=== PATIENT | male | born 1960 | race Caucasian/White ===

== ENCOUNTER → 2016-06-28 | Outpatient (CLI) | payer OTHER ==
[~2016-06-28] MED LIST: AMOXICILLIN PO; LISINOPRIL10 MG PO; NIFEREX-150150 MG PO; NO MEDICATIONS; NORCO 5/325 TAB1 TAB PO; PERCOCET 10/3251 TAB PO; PERCOCET5/325 PO; ZOFRAN PO
--- NOTE | ~2016-06-28 | CT2 ---
[facility] A Service of [facility] RADIOLOGY TEXT RESULTS PATIENT: ALEKSANDAR VALERA [facility] : 62 UNIT #: [id number] AGE: [address]: Charlene Rick MD SEX: M ORDER DR: [id number] [facility] [address] [place], [place] [address] [id number] O MR#: [id number] Acc #: [id number] NAME: ALEKSANDAR VALERA. : 1960 SEX: M STUDY DATE/TIME: 06/28/2016 8:02 [facility] ROOM: STUDY DESCRIPTION: CT Abd and Pelv W Cont Attending Physician: Charlene Rick M.D. Referring Physician: Charlene Rick M.D. Ordering Physician: Charlene Rick M.D. Primary Care Physician: Jose Barajas M.D. MEDICAL IMAGING REPORT This report is preliminary unless electronic signature is present EXAM CT abdomen and pelvis with contrast HISTORY 56-year-old male; history of colon cancer. Had chemotherapy 2007 and 2015; prior colon resection. COMPARISON CT abdomen and pelvis 03/22/2016 TECHNIQUE Axial images performed through the abdomen and pelvis following IV contrast. Multiplanar reconstructed images reviewed at a workstation. This CT exam was performed with one or more of the following radiation dose reduction techniques: automatic exposure control, adjustment of mA and/or kV according to patient size, and iterative reconstruction. FINDINGS ABDOMEN: The examination demonstrates enhancing parenchymal opacity in the left lung base. This is felt to represent atelectatic lung. Please see separate chest CT report for details. Again, this represents progressive atelectasis when compared to the patient's study from March 2016. Further evaluation with bronchoscopy may be warranted, though again, a discrete mass lesion is not seen. Liver, spleen and gallbladder appear normal. Pancreas, kidneys and adrenal glands unremarkable. Retroperitoneum unremarkable. Stomach and small bowel appear normal. Scattered diverticular changes. Rectosigmoid anastomoses appears normal. PELVIS: Bladder and prostate appear normal. Osseous structures unremarkable. There is a defect in the lower anterior abdominal wall that probably represents an incisional hernia. This contains omental fat with STS. [facility] A Service of [facility] RADIOLOGY TEXT RESULTS PATIENT: ALEKSANDAR VALERA LOCATION: [facility] : 62 UNIT #: [id number] AGE: [address]: Charlene Rick MD SEX: M ORDER DR: some surrounding scarring and fibrosis. This measures about 7 cm in greatest cephalocaudal dimension and about 3.6 cm in transverse dimension. A small amount of bowel extends into the defect. There are a few small inguinal lymph nodes. IMPRESSION 1. No findings to suggest metastatic disease within the abdomen and pelvis. 2. Postsurgical changes from apparent resection with a normal-appearing rectosigmoid anastomoses. Postsurgical changes noted in the anterior abdominal wall with a ventral wall defect, as detailed above. 3. Colonic diverticular changes, but no evidence of diverticulitis. 4. Progressive left lower lobe atelectasis. Please see chest CT report for details and recommendations. Dictated by... Frederick Caro M.D. THIS IS AN ELECTRONICALLY VERIFIED REPORT Frederick Caro M.D. at 06/29/2016 9:37 AM Rosario TD: 06/28/2016 16:15 JOB #: [id number] MEDICAL IMAGING REPORT Page 1 of 1 COPY
--- NOTE | ~2016-06-28 | CT55 ---
[facility] A Service of [facility] & [facility] RADIOLOGY TEXT RESULTS PATIENT: ALEKSANDAR VALERA LOCATION: [facility] : 62 UNIT #: [id number] AGE: [address]: Charlene Rick MD SEX: M ORDER DR: [id number] [facility] [address] [place], [place] [address] [id number] O MR#: [id number] Acc #: [id number] NAME: ALEKSANDAR VALERA. : 1960 SEX: M STUDY DATE/TIME: 06/28/2016 8:02 UNIT: [facility] ROOM: STUDY DESCRIPTION: CT Chest W Con Attending Physician: Charlene Rick M.D. Referring Physician: Charlene Rick M.D. Ordering Physician: Charlene Rick M.D. Primary Care Physician: Jose Barajas M.D. MEDICAL IMAGING REPORT This report is preliminary unless electronic signature is present EXAM CT chest with contrast. HISTORY 56-year-old male diagnosed with colon cancer 2007 and 2015. Prior colon resection. Patient presents for surveillance of metastatic disease. COMPARISON CT chest 03/22/2016. TECHNIQUE NOTE: This CT exam was performed with one or more of the following radiation dose reduction techniques: automatic exposure control, adjustment of mA and/or kV according to patient size, and iterative reconstruction. FINDINGS Axial images performed through the chest following IV contrast. Multiplanar reconstructed images reviewed at a workstation. Examination demonstrates increasing left lower lobe volume loss with increasing parenchymal consolidation or atelectasis in the posterior medial aspect of the left lower lobe. This is felt to represent atelectatic lung though underlying mass lesion not entirely excluded. Given the progressive atelectasis further evaluation with bronchoscopy may be warranted. The parenchymal opacity measures about 4.2 x 6.3 cm in greatest transverse dimensions, and about 5.5 cm in greatest cephalocaudal dimension. This is in the posterior medial aspect the right lower lobe and there is a small left pleural effusion which represents a new finding from March. There is continued parenchymal opacity in the posterior aspect of the lingular segment inferiorly with a tree in bud appearance, could represent some focal pneumonitis, but this remains stable from the prior exams. The lung nodule within the posterior medial aspect of the STS. [facility] A Service of [facility] RADIOLOGY TEXT RESULTS PATIENT: ALEKSANDAR VALERA LOCATION: [facility] : 62 UNIT #: [id number] AGE: [address]: Charlene Rick MD SEX: M ORDER DR: left lower lobe seen on the prior study is not clearly identified on today's examination as I suspect this has incorporated into the area of atelectasis. Right lung remains clear. Background parenchyma suggests mild emphysema. No discrete nodules or mass lesions seen. A trace amount of pericardial fluid. Heart size within normal limits. Minimal coronary artery calcifications. Aorta and pulmonary vessels unremarkable. No adenopathy. Upper abdomen to include the adrenal glands appear normal. Osseous structures, thoracic inlet appear normal. Extrathoracic soft tissues unremarkable. IMPRESSION 1. Progressive left lower lobe volume loss with increasing parenchymal opacity posterior medial aspect of the left lower lobe. There is also interval development of a small left pleural effusion. This could be on the basis of central obstruction and progressive atelectasis and underlying mass lesion not entirely excluded, though the area of atelectatic lung does not demonstrate a discrete mass. Given the progressive volume loss and progressive opacity, bronchoscopic evaluation may be warranted. 2. No definite findings to suggest metastatic disease to the chest. 3. Continued small parenchymal opacity posterior lingular segment inferiorly probably represents an area of focal inflammation though given its stability an infectious or neoplastic process unlikely. Dictated by... Frederick Caro M.D. THIS IS AN ELECTRONICALLY VERIFIED REPORT Frederick Caro M.D. at 06/29/2016 9:36 AM RUMA/escobar TD: 06/28/2016 15:17 JOB #: [id number] MEDICAL IMAGING REPORT Page 1 of 1 COPY
[2016-06-28 08:35] LABS: POC - CREATININE 0.97 mg/dL (0.64-1.27); POC - GFR >60.0 mL/min (>60)
== END | disposition home or self-care (01) ==
LOC: CCAT 07:22
PROVIDERS: Internal Medicine Hematology
DX: C18.9 Malignant neoplasm of colon, unspecified (principal); C34.32 Malignant neoplasm of lower lobe, left bronchus or lung; L53.0 Toxic erythema; J90 Pleural effusion, not elsewhere classified; J98.11 Atelectasis; Z90.49 Acquired absence of other specified parts of digestive tract
CPT/HCPCS: 71260; 74177; 82565; Q9967

== ENCOUNTER → 2016-10-13 | Outpatient (CLI) | payer OTHER ==
--- NOTE | ~2016-10-13 | CT55 ---
[facility] A Service of [facility] & [facility] RADIOLOGY TEXT RESULTS PATIENT: ALEKSANDAR VALERA LOCATION: [facility] : 62 UNIT #: [id number] AGE: [address]: Charlene Rick MD SEX: M ORDER DR: [id number] [facility] [address] [place], [place] [address] [id number] O MR#: [id number] [facility] #: [id number] NAME: ALEKSANDAR VALERA. : 1960 SEX: M STUDY DATE/TIME: 10/13/2016 7:56 UNIT: [facility] ROOM: STUDY DESCRIPTION: CT Chest W Con Attending Physician: Charlene Rick M.D. Referring Physician: Charlene Rick M.D. Ordering Physician: Charlene Rick M.D. Primary Care Physician: Jose Barajas M.D. MEDICAL IMAGING REPORT This report is preliminary unless electronic signature is present EXAM CT chest INDICATIONS Malignant neoplasm of the left lower lobe. Colon cancer. Observation for metastatic disease. Restaging. TECHNIQUE CT of the chest utilizing 100 mL Isovue-370 IV contrast. Coronal and sagittal reconstructions were obtained. This CT exam was performed with one or more of the following radiation dose reduction techniques: automatic control, adjustment of mA and/or kV according to patient size, and iterative reconstruction. COMPARISON CT chest dated 06/28/[address] abdomen 10/13/2016. FINDINGS The rounded area of consolidation in the medial aspect of the left lower lobe has not significantly changed from the 06/28/2016 comparison. There is some associated pleural thickening in the left lower hemithorax. This may represent an area of rounded atelectasis, however should continue to be followed. There is occlusion of the medial left lower lobe bronchi. No new pulmonary opacities. No pathologically enlarged mediastinal or hilar lymph nodes. Thoracic aorta is normal in caliber. Please refer to separately dictated report for details on the abdomen. No new osseous abnormalities. IMPRESSION 1. Rounded area of volume loss and consolidation in the left lower [facility] A Service of [facility] & [facility] RADIOLOGY TEXT RESULTS PATIENT: ALEKSANDAR VALERA LOCATION: [facility] : 62 UNIT #: [id number] AGE: [address]: Charlene Rick MD SEX: M ORDER DR: lobe is unchanged from the prior study. Given the associated pleural thickening, this may represent an area of rounded atelectasis, however, should continue to be followed to differentiate from a possible underlying mass. Dictated by... Rojelio Knowles M.D. THIS IS AN ELECTRONICALLY VERIFIED REPORT Rojelio Knowles M.D. at 10/13/2016 4:27 PM RPValarie/alf TD: 10/13/2016 13:21 JOB #: [id number] MEDICAL IMAGING REPORT Page 1 of 1 COPY
--- NOTE | ~2016-10-13 | CT2 ---
[facility] A Service of [facility] RADIOLOGY TEXT RESULTS PATIENT: ALEKSANDAR VALERA LOCATION: [facility] : 62 UNIT #: [id number] AGE: [address]: Charlene Rick MD SEX: M ORDER DR: [id number] [facility] [address] [place], [place] [address] [id number] O MR#: [id number] Acc #: [id number] NAME: ALEKSANDAR VALERA. : 1960 SEX: M STUDY DATE/TIME: 10/13/2016 7:56 UNIT: [facility] ROOM: STUDY DESCRIPTION: CT Abd and Pelv W Cont Attending Physician: Charlene Rick M.D. Referring Physician: Charlene Rick M.D. Ordering Physician: Charlene Rick M.D. Primary Care Physician: Jose Barajas M.D. MEDICAL IMAGING REPORT This report is preliminary unless electronic signature is present EXAM CT abdomen and pelvis INDICATIONS Colon cancer. Malignancy of the sigmoid colon/proximal rectum. Status post surgical resection. Observation for metastatic disease. TECHNIQUE CT abdomen and pelvis with IV contrast only. Coronal and sagittal reconstructions were obtained. This CT exam was performed with one or more of the following radiation dose reduction techniques: automatic control, adjustment of mA and/or kV according to patient size, and iterative reconstruction. COMPARISON CT abdomen and pelvis 06/28/2016. FINDINGS ABDOMEN: Patient has undergone partial sigmoid colon and rectal resection with subsequent reanastomosis. No recurrent or residual mass is identified. There is a moderate volume of stool in the colon. Patient has numerous colonic diverticula, however no diverticulitis. No pathologically enlarged mesenteric or retroperitoneal lymph nodes. The appendix is normal. Small bowel is not dilated. There is an anterior abdominal wall hernia consistent with a small incisional hernia. No complicating features. The solid abdominal organs enhance normally. The gallbladder is not distended. PELVIS: No enlarged pelvic or inguinal lymph nodes. There is a prominent cremasteric reflex of the left testicle sitting in the lower inguinal [facility] A Service of [facility] RADIOLOGY TEXT RESULTS PATIENT: ALEKSANDAR VALERA LOCATION: [facility] : 62 UNIT #: [id number] AGE: [address]: Charlene Rikc MD SEX: M ORDER DR: felisha. No acute osseous abnormalities. IMPRESSION 1. No evidence of metastatic disease in the abdomen or pelvis. 2. Postsurgical change of sigmoid colon/proximal rectal resection with subsequent reanastomosis. 3. Diverticulosis. 4. Small anterior abdominal wall hernia without complicating features. Dictated by... Rojelio Knowles M.D. THIS IS AN ELECTRONICALLY VERIFIED REPORT Rojelio Knowles M.D. at 10/13/2016 4:26 PM RPValarie/jodier TD: 10/13/2016 13:34 JOB #: [id number] MEDICAL IMAGING REPORT Page 1 of 1 COPY
[2016-10-13 09:45] LABS: POC - CREATININE 1.04 mg/dL (0.64-1.27); POC - GFR >60.0 mL/min (>60)
== END | disposition home or self-care (01) ==
LOC: CCAT 07:05
PROVIDERS: Internal Medicine Hematology
DX: Z08 Encounter for follow-up examination after completed treatment for malignant neoplasm (principal); K57.30 Diverticulosis of large intestine without perforation or abscess without bleeding; K43.9 Ventral hernia without obstruction or gangrene; R91.8 Other nonspecific abnormal finding of lung field; J92.9 Pleural plaque without asbestos; Z98.890 Other specified postprocedural states; Z85.038 Personal history of other malignant neoplasm of large intestine; Z85.118 Personal history of other malignant neoplasm of bronchus and lung
CPT/HCPCS: 71260; 74177; 82565; Q9967